=== PATIENT | male | born 1990 | race Caucasian/White ===

== ENCOUNTER → 2019-08-09 | Outpatient (CLI) | payer OTHER ==
--- NOTE | 2019-08-09 12:26 | RAD ---
EXAM DESCRIPTION: Chest,2 Views CLINICAL HISTORY: 29 years Male, DYSPNEA COMPARISON: None. TECHNIQUE: 2 view radiograph of the chest. IMPRESSION: Normal size cardiac silhouette. No lobar consolidation. No pleural effusion or pneumothorax. Included osseous structures intact. Electronically signed by: Ivan Mcdaniels MD 08/09/2019 12:24 PM CDT
== END ==
LOC: RAD 11:20
PROVIDERS: ATTEND Family Medicine
DX: R06.00 Dyspnea, unspecified (principal)

== ENCOUNTER → 2020-03-02 | Outpatient (CLI) | payer BC | LOC: YCFC.O 09:51 | PROVIDERS: ATTEND Nurse Practitioner | DX: Z20.828 Contact with and (suspected) exposure to other viral communicable diseases (principal) ==